=== PATIENT | male | born 2000 | race Caucasian/White ===

== ENCOUNTER 2024-05-05 17:55 | Emergency (ER) | payer SELFPAY ==
[2024-05-05] MEDS ORDERED: Acetaminophen 325 MG TAB ONE (18:38)
== END 2024-05-05 19:52 | disposition home or self-care (01) ==
LOC: ERS 17:55
DX: S50.02XA Contusion of left elbow, initial encounter (principal); S30.810A Abrasion of lower back and pelvis, initial encounter; M25.572 Pain in left ankle and joints of left foot; Z55.6 Problems related to health literacy; V24.9 Unspecified motorcycle rider injured in collision with heavy transport vehicle or bus in traffic accident
CPT/HCPCS: 70450; 72125; 74177